=== PATIENT | female | born 1985 ===

== ENCOUNTER 2018-03-22 07:12 | Inpatient (IN) | payer BC ==
[2018-03-22] VITALS (46 sets, daily range): BP systolic 110–156; BP diastolic 56–88; PULSE 60–103; TEMP 98.1–98.6
[~2018-03-22] VITALS: Ht 160 cm; Wt 101.8 kg
[~2018-03-22 07:12] MED LIST: PRENATAL FORMU1 EAC3 PO
[2018-03-22 07:56] LABS: BASO % 0.2 % (0.0-2.0); EOS # 0.1 (0.0-0.7); EOS % 0.6 % (0-4.0); GRAN # 6.8 (1.4-6.5); GRAN % 71.5 % (42.2-75.2); HEMATOCRIT 39.3 % (37.0-47.0); HEMOGLOBIN 12.6 g/dl (12.5-16.0); LYMPH # 2.1 (1.2-3.4); LYMPH % 21.6 % (20.0-51.0); MEAN CELL VOLUME 79 fl (80.0-100.0); MEAN CORPUSCULAR HEMOGLOBIN 25 pg (27.0-31.0); MEAN CORPUSCULAR HGB CONC 32 g/dl (33.0-37.0); MEAN PLATELET VOLUME 10.9 fl (7.4-10.4); MONO # 0.5 (0.1-0.6); MONO % 5.7 % (1.7-9.3); PLATELET COUNT 240 K/mm3 (130-400); RED BLOOD COUNT 4.96 M/mm3 (4.10-5.30); REDCELL DISTRIBUTION WIDTH-CV 16.9 % (11.5-14.5)
[2018-03-23 01:15] VITALS: BP 107/61; PULSE 70
[2018-03-23 05:00] VITALS: BP 110/62; PULSE 68; TEMP 98.3
[2018-03-23] MEDS ORDERED: MOTRIN 800800 MG/TAB PO (07:20)
[2018-03-23 07:52] VITALS: BP 122/78; PULSE 74; TEMP 98
[2018-03-23 16:00] VITALS: BP 134/81; PULSE 84; TEMP 97.9
[2018-03-23 20:15] VITALS: BP 126/68; PULSE 80; TEMP 97.6
[2018-03-24 07:00] VITALS: BP 121/76; PULSE 67; TEMP 97.6
== END 2018-03-24 12:55 | disposition home or self-care (01) | DRG 807 ==
LOC: LDR 07:12 → OB 19:10
PROVIDERS: Obstetrics & Gynecology
PROC: 10E0XZZ Delivery of Products of Conception, External Approach (ICD-10-PCS; principal; 2018-03-22)
PROC: 3E033VJ Introduction of Other Hormone into Peripheral Vein, Percutaneous Approach (ICD-10-PCS; 2018-03-22)
PROC: 10907ZC Drainage of Amniotic Fluid, Therapeutic from Products of Conception, Via Natural or Artificial Opening (ICD-10-PCS; 2018-03-22)
PROC: 0UQMXZZ Repair Vulva, External Approach (ICD-10-PCS; 2018-03-22)
PROC: 0UQGXZZ Repair Vagina, External Approach (ICD-10-PCS; 2018-03-22)
DX: O71.4 Obstetric high vaginal laceration alone (principal); Z37.0 Single live birth; O70.0 First degree perineal laceration during delivery; Z3A.40 40 weeks gestation of pregnancy; Z28.21 Immunization not carried out because of patient refusal
CPT/HCPCS: J2590; J2795; J7120

== ENCOUNTER 2019-03-31 05:58 | Inpatient (IN) | payer BC ==
[2019-03-31] VITALS (16 sets, daily range): BP systolic 102–145; BP diastolic 53–93; PULSE 66–99; TEMP 97.5–98.3
[~2019-03-31] VITALS: Ht 165.1 cm; Wt 101.4 kg
[~2019-03-31 05:58] MED LIST changes: +MOTRIN 800800 MG/TAB PO
--- NOTE | 2019-03-31 06:05 | NUR ---
Patient ambulatory to LR5 with spouse, changed into gown, FHR/TOCO monitors placed and explained. Patient states she started david around 0200 this morning, denies vaginal bleeding, or leaking of fluid. States having normal movement. Plan of care discussed. 0618: SVE-/0 per Jan PERKINS and bulgy bag noted. Dr. Simmons and admit orders obtained. Patient requests epidural and Kay DIKE SUPERVISOR obtained. 0640: IV started in her right hand, blood obtained and to lab, and LR infusing. 0643: FHR baseline 130bpm and decreasing to 90-100bpm for approx. 100 sec. and returns to baseline. 0650: Patient sitting up on edge of bed for placement of epidural. Difficulty tracing FHR due to maternal position. 0701: Test dose given and patient tolerates well. 0705: Patient repositioned and safety precautions gone over and plan of care discussed. Yoly PERKINS at bedside and given report. 0650:
[2019-03-31] MEDS ORDERED: PROCARDIA XL 6060 MG PO (06:30)
[2019-03-31 06:58] LABS: BASO % 0.4 % (0.0-2.0); EOS # 0.1 (0.0-0.7); EOS % 0.8 % (0-4.0); GRAN # 7.8 (1.4-6.5); GRAN % 74.5 % (42.2-75.2); HEMATOCRIT 39.1 % (37.0-47.0); HEMOGLOBIN 12.7 g/dl (12.5-16.0); LYMPH # 1.9 (1.2-3.4); MEAN CELL VOLUME 80 fl (80.0-100.0); MEAN CORPUSCULAR HEMOGLOBIN 26 pg (27.0-31.0); MEAN CORPUSCULAR HGB CONC 33 g/dl (33.0-37.0); MEAN PLATELET VOLUME 11.1 fl (7.4-10.4); MONO # 0.6 (0.1-0.6); MONO % 5.9 % (1.7-9.3); PLATELET COUNT 210 K/mm3 (130-400); RED BLOOD COUNT 4.92 M/mm3 (4.10-5.30); REDCELL DISTRIBUTION WIDTH-CV 16.3 % (11.5-14.5)
--- NOTE | 2019-03-31 08:02 | NUR ---
DR MCLEOD VIABLE AT 0802. TO MOTHERS CHEST IN CARE OF MADDIE GARCIA PLACENTA DELIVERED SPONT. AT 0804. PERINEUM INTACT. PITOCIN AT 333 MLS/ HOUR. ICE PACK TO PERINEUM. RECOVERY STARTED AT 0815.
[2019-04-01 02:20] VITALS: BP 126/73; PULSE 70; TEMP 98.3
[2019-04-01 07:15] VITALS: BP 137/71; PULSE 74; TEMP 97.9
[2019-04-01] MEDS ORDERED: MOTRIN 800800 MG/TAB PO (08:41)
--- NOTE | 2019-04-01 11:25 | NUR ---
Initial visit; Patient thanked Vocational Case Manager for looking in on her and offering congratulations and God's blessings to her family for the of their son. Vocational Case Manager thanked family for choosing [facility].
== END 2019-04-01 15:25 | disposition home or self-care (01) | DRG 807 ==
LOC: LDRO 05:58 → LDR 06:32 → OB 08:12
PROVIDERS: ADMIT Obstetrics & Gynecology
PROC: 10E0XZZ Delivery of Products of Conception, External Approach (ICD-10-PCS; principal; 2019-03-31)
PROC: 10907ZC Drainage of Amniotic Fluid, Therapeutic from Products of Conception, Via Natural or Artificial Opening (ICD-10-PCS; 2019-03-31)
DX: O16.4 Unspecified maternal hypertension, complicating childbirth (principal); Z37.0 Single live birth; Z3A.39 39 weeks gestation of pregnancy
CPT/HCPCS: J2400; J2590; J2795; J7120